=== PATIENT | female | born 1995 | race Caucasian/White ===

== ENCOUNTER 2017-09-21 00:15 | Emergency (ER) | payer OTHER ==
[2017-09-21 00:31] VITALS: BP 111/64
[2017-09-21] MEDS ORDERED: MORPHINE SULFATE 10 MG/ML INJ IV ONE (02:14)
[2017-09-21] MEDS ORDERED: ONDANSETRON HCL INJ/PF 4 MG/2 ML SDV IV ONE (02:14)
[2017-09-21] MEDS ORDERED: NORMAL SALINE 1000 ML 1,000 ML IV ONE (02:14)
--- NOTE | 2017-09-21 02:16 | ER Document Report ---
ED GI/ - General Chief Complaint: Nausea/Vomiting Stated Complaint: VOMITING Time Seen by Provider: 09/21/17 01:49 Notes: Patient is a 21-year-old female who comes emergency department for chief complaint of pain in her upper abdomen, vomiting, symptoms started after eating dinner tonight, she denies hematemesis, she had a normal bowel movement within the past 24 hours, she denies any particular flank pain. She states she was started on prednisone for chest wall pain, started taking the prednisone yesterday. No abdominal surgery history reported. Past medical history of scoliosis. TRAVEL OUTSIDE OF THE [place] IN LAST 30 DAYS: No - Related Data Allergies/Adverse Reactions: No Known Allergies Allergy (Unverified 09/21/17 02:48) Past Medical History - General Information source: Patient - Social History Smoking Status: Never Smoker Frequency of alcohol use: None Drug Abuse: None Lives with: Family Family History: Reviewed & Not Pertinent - Medical History Medical History: Negative Surgical Hx: Negative - Immunizations Immunizations up to date: Yes Hx Diphtheria, Pertussis, Tetanus Vaccination: Yes Review of Systems - Review of Systems Constitutional: No symptoms reported EENT: No symptoms reported Cardiovascular: No symptoms reported Respiratory: No symptoms reported Gastrointestinal: See HPI Genitourinary: No symptoms reported Female Genitourinary: No symptoms reported Musculoskeletal: No symptoms reported Skin: No symptoms reported Hematologic/Lymphatic: No symptoms reported Neurological/Psychological: No symptoms reported Physical Exam - Vital signs Vitals: Temp Pulse Resp BP Pulse Ox 98.9 F 77 20 111/64 98 09/21/17 00:29 09/21/17 00:29 09/21/17 00:29 09/21/17 00:29 09/21/17 00:29 Interpretation: Normal - General General appearance: Appears well, Alert In distress: None - HEENT Head: Normocephalic, Atraumatic Eyes: Normal Pupils: PERRL - Respiratory Respiratory status: No respiratory distress Chest status: Nontender Breath sounds: Normal Chest palpation: Normal - Cardiovascular Rhythm: Regular. No: Tachycardia Heart sounds: Normal auscultation, S1 appreciated, S2 appreciated Murmur: No - Abdominal Inspection: Normal Distension: No distension Bowel sounds: Normal Tenderness: Tender - Tender in the upper abdomen generally, nonspecific, no guarding, lower abdomen is benign Organomegaly: No organomegaly - Back Back: Normal, Nontender. No: Tender, CVA tenderness - Extremities General upper extremity: Normal inspection, Nontender, Normal color, Normal ROM , Normal temperature General lower extremity: Normal inspection, Nontender, Normal color, Normal ROM , Normal temperature, Normal weight bearing. No: Miles's sign - Neurological Neuro grossly intact: Yes Cognition: Normal Orientation: AAOx4 Sheri Coma Scale Eye Opening: Spontaneous Sheri Coma Scale Verbal: Oriented [place] Coma Scale Motor: Obeys Commands [place] Coma Scale Total: 15 Speech: Normal Motor strength normal: LUE, RUE, LLE, RLE Sensory: Normal - Psychological Associated symptoms: Normal affect, Normal mood - Skin Skin Temperature: Warm Skin Moisture: Dry Skin Color: Normal Course - Re-evaluation Re-evalutation: Leukocytosis but patient has been taking prednisone. Chemistry unremarkable including lipase. Urinalysis unremarkable. Ultrasound with no acute findings. After medications patient is completely symptomatic. Tolerates p.o. without any difficulty. Asking for food. Suspect that her symptoms are secondary to taking Toradol and prednisone with gastritis. Discussed this, discussed recommendations, follow-up, treatment, return precautions. Patient states satisfaction and agreement. - Vital Signs Vital signs: Temp Pulse Resp BP Pulse Ox 98.9 F 77 20 111/64 98 09/21/17 00:29 09/21/17 00:29 09/21/17 00:29 09/21/17 00:29 09/21/17 00:29 - Laboratory Result Diagrams: 09/21/17 02:30 09/21/17 02:30 Laboratory results interpreted by me: 09/21/17 09/21/17 09/21/17 02:30 02:30 02:30 WBC 16.8 H Absolute Neutrophils 12.6 H Sodium 145.8 H Urine Ketones TRACE H Ur Leukocyte Esterase TRACE H Discharge - Discharge Clinical Impression: Upper abdominal pain Vomiting Qualifiers: Vomiting type: unspecified Vomiting Intractability: non-intractable Nausea presence: with nausea Qualified Code(s): R11.2 - Nausea with vomiting, unspecified Disposition: HOME, SELF-CARE Additional Instructions: Your ultrasound and workup did not show any concerning findings. Your evaluation is consistent with inflammation of your upper gastrointestinal tract , probably gastritis. This is most likely from taking first Toradol and then prednisone. Stop these medications, take Carafate, Pepcid, Zofran as prescribed , start with bland food, fluids. Avoid alcohol, NSAIDs, smoking, spicy food, caffeine. Follow-up with primary care for additional evaluation and management. Return if you worsen including return pain, vomiting, vomiting blood, black stools, or any other concerning symptoms. Prescriptions: Famotidine [Pepcid 20 mg Tablet] 20 mg PO BID #20 tablet Ondansetron [Zofran Odt 4 mg Tablet] 1 - 2 tab PO Q4H PRN #15 tab.rapdis PRN Reason: For Nausea/Vomiting Sucralfate [Carafate 1 gm Tablet] 1 gm PO QID #20 tablet
[2017-09-21 02:44] LABS: ABSOLUTE BASOPHILS # (AUTO) 0.1 10^3/uL (0.0-0.2); ABSOLUTE LYMPHOCYTES (AUTO) 2.9 10^3/uL (0.5-4.7); ABSOLUTE MONOCYTES (AUTO) 1.2 10^3/uL (0.1-1.4); ABSOLUTE NEUT (AUTO) 12.6 10^3/uL (1.7-8.2); BASOPHILS % (AUTO) 0.3 % (0-2); HEMATOCRIT 40.6 % (36.0-47.0); LYMPHOCYTES % (AUTO) 17.1 % (13-45); MEAN CORPUSCULAR HEMOGLOBIN 29.6 pg (27.0-33.4); MEAN CORPUSCULAR HGB CONC 34.6 g/dL (32.0-36.0); MEAN CORPUSCULAR VOLUME 86 fl (80-97); MONOCYTES % (AUTO) 7.4 % (3-13); PLATELET COUNT 270 10^3/uL (150-450); RED BLOOD COUNT 4.74 10^6/uL (3.72-5.28); RED CELL DISTRIBUTION WIDTH 12.9 % (11.5-14.0); SEGMENTED NEUTROPHILS % (AUTO) 75.2 % (42-78); TOTAL CELLS COUNTED % (AUTO) 100 %; WHITE BLOOD COUNT 16.8 10^3/uL (4.0-10.5)
[2017-09-21 02:52] LABS: AMORPHOUS SEDIMENT,URINE TRACE /HPF; APPEARANCE,URINE SLIGHTLY-CLOUDY; BILIRUBIN,URINE NEGATIVE (NEGATIVE); COLOR,URINE YELLOW; GLUCOSE, URINE NEGATIVE (NEGATIVE); KETONES,URINE TRACE mg/dL (NEGATIVE); LEUKOCYTE ESTERASE,URINE TRACE (NEGATIVE); NITRITE,URINE NEGATIVE (NEGATIVE); PROTEIN,URINE NEGATIVE (NEGATIVE); UROBILINOGEN,URINE NEGATIVE mg/dL (<2.0)
[2017-09-21 02:53] LABS: ALANINE AMINOTRANSFERASE 23 U/L (9-52); ALBUMIN 4.8 g/dL (3.5-5.0); ALKALINE PHOSPHATASE 56 U/L (38-126); ANION GAP 15 (5-19); ASPARTATE AMINO TRANSFERASE 21 U/L (14-36); BILIRUBIN,DIRECT 0.2 mg/dL (0.0-0.4); BILIRUBIN,TOTAL 0.7 mg/dL (0.2-1.3); BLOOD UREA NITROGEN 15 mg/dL (7-20); CALCIUM 10.1 mg/dL (8.4-10.2); CARBON DIOXIDE 25 mmol/L (22-30); CHLORIDE 106 mmol/L (98-107); GLUCOSE 103 mg/dL (75-110); LIPASE 41.6 U/L (23-300); POTASSIUM 3.9 mmol/L (3.6-5.0); SODIUM 145.8 mmol/L (137-145); TOTAL PROTEIN 7.9 g/dL (6.3-8.2)
--- NOTE | 2017-09-21 04:35 | RADIOLOGY REPORT (SQ) ---
Ultrasound right upper quadrant on 09/21/2017 at 3:59 AM CLINICAL INDICATION: Epigastric pain COMPARISON: None FINDINGS: Multiple sonographic images are obtained throughout the right upper quadrant, both transverse and sagittal images are obtained. Visualized aorta is unremarkable without evidence of an aneurysm. Visualized pancreas is unremarkable. Visualized liver is homogeneous without focal lesion or evidence of intrahepatic biliary ductal dilatation. Visualized hepatic vasculature is patent and with a normal directional flow. There are no gallstones, gallbladder wall thickening or pericholecystic fluid. Common duct measures 5 mm which is within normal limits mitigating against obstruction of the biliary tree. Right kidney shows no hydronephrosis. IMPRESSION: Unremarkable exam.
[2017-09-21] MEDS ORDERED: FAMOTIDINE 20 MG TABLET PO ONE (05:20)
[2017-09-21] MEDS ORDERED: SUCRALFATE 1 GM TABLET PO ONE (05:20)
== END 2017-09-21 05:56 | disposition home or self-care (01) ==
LOC: ER 00:15
DX: R10.10 Upper abdominal pain, unspecified (principal); R11.10 Vomiting, unspecified; R07.89 Other chest pain
CPT/HCPCS: 99284; 96361; 96374; 96375; 36415; 83690; 85025; 81025; 80053; 81001; 76705; J2270; J2405; J7030

== ENCOUNTER 2018-11-17 21:50 | Emergency (ER) | payer OTHER ==
--- NOTE | 2018-11-17 22:50 | RADIOLOGY REPORT (SQ) ---
XR CHEST 2 VIEWS CLINICAL STATEMENT: SOB COMPARISON: None FINDINGS: Cardiomediastinal silhouette is within normal limits. There is no focal lung consolidation or pleural effusion. No evidence of pulmonary edema or pneumothorax. IMPRESSION: No acute cardiopulmonary disease.
[2018-11-17] MEDS ORDERED: IBUPROFEN 600 MG TABLET PO ONE (23:45)
--- NOTE | 2018-11-17 23:50 | ER Document Report ---
ED General - General Chief Complaint: Shortness Of Breath Stated Complaint: DIFFICULTY BREATHING Time Seen by Provider: 11/17/18 23:08 Primary Care Provider: TETO SCHROEDER,LSI Armstrong MD [Primary Care Provider] - Follow up as needed Notes: Patient is a 23-year-old female presents to the emergency department for generalized back pain. Patient states she has had a generalized cough and congestion for the last 24 hours. States she has had intermittent back pain and bilateral rib pain for the last 3 weeks. Patient voices "I guess I have had a cough for longer." Patient states previously at another hospital she was seen for generalized chest pain. States she inevitably received a CT and was told she had a nodule on her lung. States she never followed up with pulmonology and was concerned that this said nodule was "getting bigger" which is what prompted her visit to the emergency department. Patient's denying any hemoptysis, fevers, chest pain, respiratory distress. Patient points to generalized right-sided intercostal rib pain as well as right intercostal back pain. Patient's denying any dysuria, vaginal discharge. Patient states her last menstrual cycle was 10/26/2018. I discussed use of Motrin for intercostal muscle pain, patient voices she is not and would not like to do a test in the emergency room. TRAVEL OUTSIDE OF THE [place] IN LAST 30 DAYS: No - Related Data Allergies/Adverse Reactions: prednisone Allergy (Verified 11/17/18 22:16) Past Medical History - General Information source: Patient - Social History Smoking Status: Never Smoker Frequency of alcohol use: Social Drug Abuse: None Family History: Reviewed & Not Pertinent Patient has suicidal ideation: No Patient has homicidal ideation: No Renal/ Medical History: Denies: Hx Peritoneal Dialysis - Immunizations Immunizations up to date: Yes Hx Diphtheria, Pertussis, Tetanus Vaccination: Yes Review of Systems - Review of Systems Constitutional: denies: Fever EENT: See HPI Cardiovascular: See HPI Respiratory: See HPI Gastrointestinal: No symptoms reported Genitourinary: No symptoms reported Female Genitourinary: No symptoms reported Musculoskeletal: See HPI Skin: No symptoms reported Hematologic/Lymphatic: No symptoms reported Neurological/Psychological: No symptoms reported Physical Exam - Vital signs Vitals: Temp Resp BP 98.3 F 14 131/82 H 11/17/18 22:13 11/17/18 22:13 11/17/18 22:13 - Notes Notes: GENERAL: Alert, interacts well. No acute distress. HEAD: Normocephalic, atraumatic. No frontal or maxillary sinus tenderness noted. EYES: Pupils equal, round, and reactive to light. Extraocular movements intact. ENT: Oral mucosa moist, tongue midline. Nares patent, swollen turbinates noted bilaterally, TM's intact, nonerythematous, nonbulging bilaterally. Pharynx within normal limits no palatal petechiae noted NECK: Full range of motion. Supple. Trachea midline. No lymphadenopathy appreciated LUNGS: Clear to auscultation bilaterally, no wheezes, rales, or rhonchi. No respiratory distress. HEART: Regular rate and rhythm. No murmur Chest: No crepitus felt, no erythema or ecchymosis noted anterior posterior chest wall. Generalized pain noted right posterior intercostal region as well as right midaxillary intercostal region lower. ABDOMEN: Soft, non-tender. Non-distended. Bowel sounds present in all 4 quadrants. EXTREMITIES: Moves all 4 extremities spontaneously. No edema, normal radial and dorsalis pedis pulses bilaterally. No cyanosis. BACK: no cervical, thoracic, lumbar midline tenderness. No saddle anesthesia, normal distal neurovascular exam. NEUROLOGICAL: Alert and oriented x3. Normal speech. cranial nerves II through XII grossly intact. PSYCH: Normal affect, normal mood. SKIN: Warm, dry, normal turgor. No rashes or lesions noted. Course - Re-evaluation Re-evalutation: 11/17/18 23:48 Chest X-Ray 11/17/18 00:00 IMPRESSION: No acute cardiopulmonary disease. Patient's chest x-ray is within normal limits in the emergency department. Patient's back and right rib pain is reproducible and increased and patient takes a deep breath. Patient's lung sounds are clear and equal in all armenta. She does sound very congested on physical exam. States she is using an [id number] nasal steroid spray. Discussed continued use of anti- inflammatories and following up with pulmonology. Patient voices she is supposed to hear from the varnish cooker to this Sunday for continued care. At this time will discharge with return precautions and follow-up recommendations. Verbal discharge instructions given a the bedside and opportunity for questions given. Medication warnings reviewed. Patient is in agreement with this plan and has verbalized understanding of return precautions and the need for primary care follow-up in the next 24-72 hours. This medical record was dictated with voice recognizing software. There may be grammatical, syntax errors that are unintended. 11/17/18 23:50 Patient voices she is new to the area and would like a referral to orthopedics. States she does have a history of scoliosis and would like continued care. - Vital Signs Vital signs: Temp Pulse Resp BP Pulse Ox 98.3 F 78 14 131/82 H 99 11/17/18 22:13 11/17/18 22:15 11/17/18 22:13 11/17/18 22:13 11/17/18 22:15 Discharge - Discharge Clinical Impression: Rib pain on right side Condition: Stable Disposition: HOME, SELF-CARE Instructions: Chest Wall Pain ([facility]), Anti-Inflammatory Medication ([facility]) Additional Instructions: As we discussed you have been seen and treated in the emergency department for your right back and rib pain. This does appear to be muscular in nature. Please make sure you are taking [id number] anti-inflammatories. Please also stay well-hydrated and follow-up with your primary care provider. Return to the emergency room for any further concerns. Referrals: LIS IRENE JR, MD [Primary Care Provider] - Follow up as needed EARL DELUNA JR, DO [ACTIVE PROVISIONAL STAFF] - Follow up as needed
[2018-11-18 00:02] VITALS: BP 103/65
== END 2018-11-18 00:02 | disposition home or self-care (01) ==
LOC: ER 21:50
DX: R07.81 Pleurodynia (principal); R06.02 Shortness of breath; M54.9 Dorsalgia, unspecified; R05 Cough; R09.81 Nasal congestion
CPT/HCPCS: 71046; 99284